=== PATIENT | male | born 1995 | race American Indian/Alaskan Native ===

== ENCOUNTER 2017-08-04 10:19 | Emergency (ER) | payer OTHER, MEDICAID ==
[~2017-08-04] VITALS: Ht 172.7 cm; Wt 100.2 kg
[~2017-08-04 10:19] MED LIST: DICL100G15 TOP
[2017-08-04] MEDS ORDERED: CYCL-1 PO (11:18)
[2017-08-04] MEDS ORDERED: IBUP-1984 PO (11:18)
[2017-08-04 11:22] VITALS: BP 148/88
== END 2017-08-04 11:24 | disposition home or self-care (01) ==
LOC: ER 10:21
DX: S13.4XXA Sprain of ligaments of cervical spine, initial encounter (principal); F12.10 Cannabis abuse, uncomplicated; Z79.899 Other long term (current) drug therapy; V87.7XXA Person injured in collision between other specified motor vehicles (traffic), initial encounter; Y93.89 Activity, other specified; Y92.89 Other specified places as the place of occurrence of the external cause; Y99.8 Other external cause status
CPT/HCPCS: 99283